=== PATIENT | male | born 1980 | race Caucasian/White ===

== ENCOUNTER 2016-09-11 11:19 | Emergency (ER) | payer SELFPAY ==
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
== END 2016-09-11 14:25 | disposition home or self-care (01) ==
LOC: ER 11:19
DX: G47.00 Insomnia, unspecified (principal); F17.210 Nicotine dependence, cigarettes, uncomplicated; Z88.0 Allergy status to penicillin

== ENCOUNTER 2016-09-20 06:15 | Emergency (ER) | payer SELFPAY ==
--- NOTE | 2016-09-20 19:52 | ER ---
ADMIT: 09/20/2016 RM/LOC: ER [facility] MR#: [id number] [address] [address] D[facility] FOREMAN [address] [place] [address] Emergency Room Report SEX: M AGE: 36 : 1980 DATE: 09/20/2016 HISTORY OF PRESENT ILLNESS: The patient is a 36-year-old male with no specific past medical history, came to the ER with chief complaint of one week of left hand tingling on the fingers, and also on the volar area, and also pain on the base of the proximal phalanx, and also difficulty completely flexing the fingers per patient. The patient states he has repetitive activity to work with hands, which he has to carry, pull, and drop heavy objects all day long. The patient states he is being followed up by physical therapy, but he did not have any results. The patient denies any obvious trauma. PHYSICAL EXAMINATION: VITAL SIGNS: The patient had stable vitals. HEAD AND NECK: Noncontributory. CHEST: Normal. ABDOMEN: Normal. EXTREMITIES: Sensory is normal bilateral. There is no erythema and there is no swelling of the fingers. Fingers are not sausage shaped. Fingers are kept extended. Thenar area is not atrophied. The patient had weakness in all the fingers in flexion, and also weakness seen apposition of the thumb. The rest of the exam was noncontributory. The patient x-ray did not show any spurs or other abnormalities. The patient could be at the beginning stages of carpal tunnel syndrome versus other causes of neuropathy, polyneuropathy. The patient was discharged to home putting the hand in a splint with Motrin p.o. Followup with the primary doctor if the symptoms continue for possible nerve conduction study per their discussion. Yimi Azar MD/ vickie JOB #: [id number] CC: Yimi Azar MD, Attending Physician Lida Baig MD, Family Physician
== END 2016-09-20 07:02 | disposition home or self-care (01) ==
LOC: ER 06:15
DX: M79.642 Pain in left hand (principal); R53.1 Weakness; Z88.0 Allergy status to penicillin; Z87.442 Personal history of urinary calculi; Z79.899 Other long term (current) drug therapy

== ENCOUNTER 2016-11-18 09:31 | Emergency (ER) | payer SELFPAY ==
--- NOTE | ~2016-11-18 | ER ---
ADMIT: 11/18/2016 RM/LOC: ER [facility] MR#: [id number] [address] [address] [facility] FOREMAN [address] [place] [address] Emergency Room Report SEX: M AGE: 36 : 1980 DATE: 11/18/2016 ADDENDUM: A 36-year-old male, coming with testicular pain. He has had no fever, no discharge. We did get an ultrasound which essentially was negative. The ER was also quite busy and then he decided he did not want to stay in time to go over this, so the patient had eloped. This is probably epididymitis, but he had eloped prior to final disposition. Vijay Holman MD/ vickie JOB #: [id number] CC: Vijay Holman MD, Attending Physician UNKNOWN, Family Physician
--- NOTE | 2016-11-19 08:16 | ER ---
ADMIT: 11/18/2016 RM/LOC: ER [facility] MR#: [id number] [address] [address] [facility] FOREMAN [address] [place] [address] Emergency Room Report SEX: M AGE: 36 : 1980 DATE: 11/18/2016 ADDENDUM: I did get a hold of him after he left. 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 I called in Cipro 500 b.i.d. x14 days to see if that will clear him up. He should follow up as needed. CONDITION ON DISCHARGE: Still good. Vijay Holman MD/ vickie JOB #: [id number] CC: Vijay Holman MD, Attending Physician UNKNOWN, Family Physician
== END 2016-11-18 12:35 | disposition left against medical advice (07) ==
LOC: ER 09:31
DX: N45.1 Epididymitis (principal); F17.210 Nicotine dependence, cigarettes, uncomplicated; Z79.899 Other long term (current) drug therapy; Z88.0 Allergy status to penicillin